=== PATIENT | female | born 1955 ===

== ENCOUNTER 2022-03-26 14:32 | Emergency (ER) | payer OTHER ==
[~2022-03-26] VITALS: Ht 154.9 cm; Wt 120.0 kg
[2022-03-26] MEDS ORDERED: NALOXONE HCL 1 MG/ML 2 ML SYRINGE IM ONE (14:36)
[2022-03-26] MEDS ORDERED: EPINEPHrine 1:10,000 [1 MG/10 ML] SYRINGE IVP ONE (14:36)
[2022-03-26] MEDS ORDERED: 0.9% SODIUM CHLORIDE 1,000 ML BAG IV ONE (14:36)
[2022-03-26] MEDS ORDERED: 0.9% SODIUM CHLORIDE 10 ML SYRINGE IVP ONE (14:36)
[2022-03-26] MEDS ORDERED: SODIUM BICARBONATE [ADULT] 8.4% 50 MEQ/50 ML SYRINGE IVP ONE (14:36)
[2022-03-26] MEDS ORDERED: AMIODARONE HCL 50 MG/ML 3 ML VIAL IV ONE (14:36)
[2022-03-26] MEDS ORDERED: LIDOCAINE/PF 2% 5 ML SYRINGE IVP ONE (14:36)
[2022-03-26] MEDS ORDERED: DEXTROSE 5%-WATER 500 ML BAG IV ONE (14:36)
[2022-03-26] MEDS ORDERED: DOPamine HCL/D5W 400 MG/250 ML IV BAG IV ONE (14:36)
[2022-03-26 16:22] VITALS: BP 0/0
== END 2022-03-26 20:03 ==
LOC: EMS 14:35
DX: I46.9 Cardiac arrest, cause unspecified (principal)
CPT/HCPCS: 99291; 92950; J0282; J1265; J0171; J3490 ×2; J2310; J7060; J7030